=== PATIENT | female | born 1985 | race African-American/Black ===

== ENCOUNTER 2020-08-30 18:44 | Emergency (ER) | payer OTHER, SELFPAY ==
[2020-08-30] MEDS ORDERED: Fluorescein Opthalmic Strip ONE (19:25)
[2020-08-30] MEDS ORDERED: Tetracaine 0.5% PF 4 ML BOT ONE (19:25)
== END 2020-08-30 20:37 | disposition home or self-care (01) ==
LOC: CSHERS 18:44
DX: H16.001 Unspecified corneal ulcer, right eye (principal)
CPT/HCPCS: 99283

== ENCOUNTER 2021-06-05 21:16 | Emergency (ER) | payer OTHER ==
[2021-06-05 23:18] LABS: #Basophils 0.1 10x3/uL (0.0-0.2); #Eosinphils 0.2 10x3/uL (0.0-0.5); #Monocytes 0.9 10x3/uL (0.0-1.1); #Neutrophils 3.8 10x3/uL (1.5-8.4); %Basophils 0.7 % (0.0-2.0); %Eosinophils 2.3 % (0.0-6.0); %Lymphocytes 40.8 % (18.0-47.0); %Monocytes 10.4 % (0.0-10.0); %Neutrophils 45.6 % (40.0-75.0); Hemoglobin 11.4 g/dL (12.0-15.5); Mean Corpuscular Hemoglobin 22.4 pg (27.0-33.0); Mean Corpuscular Volume 69.9 fl (81.6-98.3); Mean Platelet Volume 9.6 fl (7.4-10.4); Platelet Count 315 10x3/uL (150-450); Red Blood Cell (RBC) Count 5.09 10x6/uL (3.90-5.03); White Blood Cell (WBC) Count 8.4 10x3/uL (3.5-10.5)
[2021-06-05] MEDS ORDERED: Morphine 4 MG/ML VIAL ONE (23:32)
[2021-06-05] MEDS ORDERED: Ketorolac Tromethamine 30 MG/ML VIAL ONE (23:33)
[2021-06-05] MEDS ORDERED: Aspirin Chewable 81 MG TAB ONE (23:37)
[2021-06-05 23:39] LABS: ALT (SGPT) 26 U/L (8-55); AST (SGOT) 21 U/L (5-34); Alkaline Phosphatase 53 U/L (40-110); Anion Gap 12 mmol/L (10-20); BUN (Urea Nitrogen) 8 mg/dL (7.0-18.7); Bilirubin, Total 0.3 mg/dL (0.2-1.2); Calc. Creatinine Clearance 0 mL/min (70-130); Carbon Dioxide 24 mmol/L (22-29); Chloride 106 mmol/L (98-107); Globulin 3.6 g/dL (2.4-3.5); Glucose 96 mg/dL (70-105); Lipase 28 U/L (8-78); Potassium 3.9 mmol/L (3.5-5.1); Protein, Total 7.6 g/dL (6.0-8.3); Sodium 138 mmol/L (136-145)
[2021-06-06 00:54] LABS: Bilirubin Neg (Negative); Blood, Urine 10 (Negative); Clarity Cloudy (Clear); Glucose, Urine (Dipstick) Normal (Negative); Ketone, Urine Negative (Negative); Leukocyte 500 (Negative); Nitrite Negative (Negative); Protein, Urine (Dipstick) 15 mg/dl (Neg-Trace); Specific Gravity, Urine 1.015 (1.002-1.036); Urobilinogen Normal mg/dL (Less than 2); pH, Urine 6.5 (5.0-9.0)
[2021-06-06 01:11] LABS: Bacteria/HPF 4+ HPF (None Seen); RBC/HPF 0-3 HPF (0-3); Squamous Epithelial 21-50 HPF (0-3); Trichomonas/HPF 1+ HPF (None Seen)
[2021-06-06 01:28] LABS: Microcytosis MODERATE=15-30 cells (100X) (0-5/hpf)
[2021-06-06 01:29] LABS: Platelet Morphology Comment Appears Adequate
== END 2021-06-06 04:10 | disposition home or self-care (01) ==
LOC: CSHERS 21:16
DX: R07.89 Other chest pain (principal); A59.03 Trichomonal cystitis and urethritis
CPT/HCPCS: 71045; 71275; 80053; 81003; 81015; 83690; 84484; 85025; 85379; 93005; 93010; 96374; 96375; J1885; J2270